=== PATIENT | male | born 1985 | race Two or more races ===

== ENCOUNTER 2020-05-25 22:08 | Emergency (ER) | payer SELFPAY ==
[~2020-05-25] VITALS: Ht 162.6 cm; Wt 65.9 kg
[~2020-05-25 22:08] MED LIST: LIDOcaine 1% 30ml preserv. free vial ONE
[2020-05-26] MEDS ORDERED: nitroGLYCERIN 1gm ointment UD TP ONE (00:30)
[2020-05-26] MEDS ORDERED: TETanus/Pertussis (Acell)/Diphther VAC/PF (Tdap-Adult) 0.5ml syringe IMVAC ONE (00:30)
[2020-05-26] MEDS ORDERED: LIDOcaine/epinephrine/tetracaine TOPICAL sol 3 ML syringe TOP ONE ×3 (02:10→02:25)
[2020-05-26] MEDS ORDERED: amox tr/potassium clavulanate 875/125mg TAB PO ONE (02:20)
[2020-05-26] MEDS ORDERED: ondansetron 4mg rapidly disintigrating tab PO ONE (02:20)
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
[2020-05-26] MEDS ORDERED: normal saline 1000ml 1,000 ML IV ONE (02:35)
[2020-05-26] MEDS ORDERED: AMOX-419 PO (02:46)
[2020-05-26 03:25] VITALS: BP 112/80
[2020-05-27] MEDS ORDERED: fentaNYL/PF 50MCG/1 ML 2ML syringe ONE (07:24)
[2020-05-27] MEDS ORDERED: midazolam 1 mg/ML 2ml injection ONE (07:24)
[2020-05-27] MEDS ORDERED: LIDOcaine 2% (20mg/ml) 5ml vial ONE (07:37)
[2020-05-27] MEDS ORDERED: propofol inj 20 ML IV ONE (07:37)
[2020-05-27] MEDS ORDERED: rocuronium 10mg/ml inj IV ONE (07:37)
[2020-05-27] MEDS ORDERED: dexamethasone sod phosphate 4mg/ml inj. ONE (07:37)
[2020-05-27] MEDS ORDERED: ondansetron/PF 4mg/2ml inj ONE (07:37)
[2020-05-27] MEDS ORDERED: ceFAZolin 1000mg inj ONE ×2 (07:41)
[2020-05-27] MEDS ORDERED: ePHEDrine 50MG/ML INJ. ONE (08:11)
[2020-05-27] MEDS ORDERED: 0.9 % SODIUM CHLORIDE 10 ML VIAL ONE (08:24)
[2020-05-27] MEDS ORDERED: albumin (Human) 5% 250ml 250 ML IV ONE (08:27)
[2020-05-27] MEDS ORDERED: neostigmine methylsulfate 1 MG/ML 10ml vial ONE (08:28)
[2020-05-27] MEDS ORDERED: glycopyrrolate 0.2mg/ml inj ONE (08:28)
== END 2020-05-26 03:26 | disposition home or self-care (01) ==
LOC: ER 22:34
DX: S01.311A Laceration without foreign body of right ear, initial encounter (principal); Z72.89 Other problems related to lifestyle; W19.XXXA Unspecified fall, initial encounter; Y93.89 Activity, other specified; Y92.89 Other specified places as the place of occurrence of the external cause; Y99.8 Other external cause status
CPT/HCPCS: 12013; 70450; 90471; 90715; 99284; J2001; J7030; J0690; J1100; J2250; J2405; J2704; J2710; J3010; J3490; P9045

== ENCOUNTER 2020-05-26 09:57 | Emergency (ER) | payer SELFPAY ==
[~2020-05-26] VITALS: Ht 167.6 cm; Wt 68.2 kg
[~2020-05-26 09:57] MED LIST changes: +AMOX-419 PO; -LIDOcaine 1% 30ml preserv. free vial ONE
[2020-05-26 11:00] VITALS: BP 120/80
== END 2020-05-26 11:00 | disposition left against medical advice (07) ==
LOC: ER 09:58
DX: S01.311D Laceration without foreign body of right ear, subsequent encounter (principal); Z79.2 Long term (current) use of antibiotics; X58.XXXD Exposure to other specified factors, subsequent encounter
CPT/HCPCS: 99284

== ENCOUNTER 2020-05-27 03:13 | Emergency (ER) | payer MEDICAID, OTHER ==
[2020-05-27] VITALS (10 sets, daily range): BP systolic 95–125; BP diastolic 40–75
[~2020-05-27] VITALS: Ht 172.7 cm; Wt 63.6 kg
[2020-05-27] MEDS ORDERED: normal saline 1000ml 1,000 ML IVB ONE (03:30)
--- NOTE | 2020-05-27 03:32 | NUR ---
friend states he did eat today and that he didnot drink alcohol today
--- NOTE | 2020-05-27 03:33 | NUR ---
his right ear has since had 4x4s layered on top of existing bandage and more coban applied.
[2020-05-27] MEDS ORDERED: tranexamic acid 100mg/ml inj. IV ONE (03:40)
[2020-05-27 03:48] LABS: BASOPHILS # (AUTO) 0.1 X10'3 (0-0.2); BASOPHILS % (AUTO) 0.6 % (0-1); EOSINOPHILS # (AUTO) 0.1 X10'3 (0-0.9); EOSINOPHILS % (AUTO) 1.3 % (0-6); HEMATOCRIT 22.5 % (42.0-52.0); HEMOGLOBIN 7.6 g/dl (14.0-17.9); LYMPHOCYTES # (AUTO) 4.1 X10'3 (1.1-4.8); LYMPHOCYTES % (AUTO) 38.1 % (21-51); MEAN CORPUSCULAR HEMOGLOBIN 30.4 PG (27.0-31.0); MEAN CORPUSCULAR HGB CONC 33.8 g/dL (33.0-36.5); MEAN CORPUSCULAR VOLUME 90.1 FL (78-98); MONOCYTES # (AUTO) 0.7 X10'3 (0-0.9); MONOCYTES % (AUTO) 6.2 % (2-12); NEUTROPHILS # (AUTO) 5.8 X10'3 (1.8-7.7); NEUTROPHILS % (AUTO) 53.8 % (42-75); PLATELET COUNT 255 X10'3 (140-440); RED CELL DISTRIBUTION WIDTH 15.6 % (11.5-14.5); WHITE BLOOD COUNT 10.8 X10'3 (4.5-11.0)
[2020-05-27 04:03] LABS: ALANINE AMINOTRANSFERASE 71 U/L (12-78); ALBUMIN 2.6 G/DL (3.4-5.0); ALBUMIN/GLOBULIN RATIO 1.1 (1.1-1.5); ALKALINE PHOSPHATASE 61 IU/L (46-116); ANION GAP 9 (8-16); ASPARTATE AMINO TRANSFERASE 22 U/L (10-37); BILIRUBIN,TOTAL 0.8 MG/DL (0.1-1.0); BLOOD UREA NITROGEN 11 MG/DL (7-18); CALCIUM 7.1 MG/DL (8.5-10.1); CHLORIDE 106 MMOL/L (99-107); CREATININE 0.92 MG/DL (0.60-1.10); ETHANOL < 0.010 GM/DL (0.0-0.010); GLUCOSE 114 MG/DL (70-104); SODIUM 141 MMOL/L (135-145); TOTAL CARBON DIOXIDE 26.1 MMOL/L (24-32); eGFR > 90 ML/MIN
--- NOTE | 2020-05-27 04:37 | NUR ---
PT SIGNED CONSENT TO GIVE BLOOD
--- NOTE | 2020-05-27 04:56 | NUR ---
Had MD at as the dressing bled though. Instructed to remove dressing, place dressing behind ear and in front of ear and replace coban. So done. When taken off there was a clot and xeroform over that ear pinna that was avulsed, there is active bleeding at a good pace. will monitor.
--- NOTE | 2020-05-27 05:25 | NUR ---
pt is asleep
--- NOTE | 2020-05-27 06:06 | NUR ---
Doesn't appear to be bleeding through at all. Just a tinge of blood to anterior face part, however, that was from a smear of blood when I placed that dressing.
[2020-05-27] MEDS ORDERED: potassium Cl 20 mEq SR tablet PO PRN ×2 (06:35)
[2020-05-27] MEDS ORDERED: ondansetron/PF 4mg/2ml inj IV PRN ×2 (06:35→08:25)
[2020-05-27] MEDS ORDERED: magnesium 4gm in 100ml NS 100 ML IV PRN (06:35)
[2020-05-27] MEDS ORDERED: magnesium Cl slow-release 64mg tablet PO PRN (06:35)
[2020-05-27] MEDS ORDERED: magnesium 2GM in 50ml NS 50 ML IV PRN (06:35)
[2020-05-27] MEDS ORDERED: acetaminophen 325mg tablet PO PRN (06:35)
[2020-05-27] MEDS ORDERED: potassium Cl 40MEQ/1/2NS 520ml 520 ML IV PRN ×2 (06:35)
[2020-05-27] MEDS ORDERED: normal saline 1000ml 1,000 ML IV SCH (06:35)
[2020-05-27] MEDS ORDERED: LIDOcaine 1% W/epiNEPHrine 1:100,000 20ml vial ONE (06:39)
--- NOTE | 2020-05-27 07:05 | NUR ---
PATIENT HAS BEEN NPO. IV SITES X 2 PATENT. PATIENT DRESSED IN HOSPITAL GOWN AND ALL PERSONAL BELONGINGS BAGGED AND GIVEN TO FRIEND, WHO IS PRESENT IN ROOM. TO OR PER DALI, WITH TRANSPORTERS. PATIENT IN STABLE CONDITION UPON DEPARTURE FROM ER.
[2020-05-27] MEDS ORDERED: famotidine/PF 10 mg/ml inj IV ONE (07:23)
[2020-05-27] MEDS ORDERED: BUPIVAcaine 0.5% inj/PF 30 ML ONE (07:47)
[2020-05-27] MEDS ORDERED: K and/or MAG REPLACEMENT MC SCH (08:00)
[2020-05-27] MEDS ORDERED: morphine 2 MG/ML inj. syringe IV PRN (08:25)
[2020-05-27] MEDS ORDERED: morphine 4 MG/ML inj SYRINge IV PRN (08:25)
[2020-05-27] MEDS ORDERED: meperidine/PF 25mg/ml syringe IV PRN ×3 (08:25)
[2020-05-27] MEDS ORDERED: bacitracin 15gm ointment TP ONE (08:25)
[2020-05-27] MEDS ORDERED: proCHLORperazine 10 MG/2 ml inj IV PRN (08:25)
[2020-05-27] MEDS ORDERED: ringers solution, lacted 1,000 ML IV SCH (08:25)
[2020-05-27] MEDS ORDERED: acetaminophen 1,000mg/100ml IV 100 ML IV PRN (08:25)
[2020-05-27] MEDS ORDERED: BUPIVAcaine/PF 5 MG/ML 10ML VIAL IJ ONE (08:30)
[2020-05-27] MEDS ORDERED: HYDROcodone/acetaminophen 10/325mg tab PO ONE (08:45)
[2020-05-27] MEDS ORDERED: bacitracin 15gm ointment TP SCH (08:45)
--- NOTE | 2020-05-27 08:50 | NUR ---
Received from OR via BED , accompanied by Anesthesiologist and report given by Anesthesiolgist. PATIENT WAKING UP, NO S/S OF PAIN, V/S WNL, SCD ON, 20G TO LUE, RIGHT EAR DRESSING CDI
--- NOTE | 2020-05-27 09:51 | NUR ---
PATIENT A&OX4, DENIES PAIN, V/S WNL, SCD ON, 20G TO LUE D/C, RIGHT EAR DRESSING CDI . I HAVE REVIEWED D/C ORDERS WITH PATIENT AND HIS FRIEND AND THEY HAVE VERBALIZED UNDERSTANDING. PATIENT D/C HOME WITH ALL BELONGINGS AND FRIEND GAVE TRANSPORT.
== END 2020-05-27 09:51 | disposition home or self-care (01) ==
LOC: ER 03:14 → ED HOLD 06:31 → UNDOADMOB 06:31 → UNDODISOB 10:00
DX: S01.311A Laceration without foreign body of right ear, initial encounter (principal); Z20.822 Contact with and (suspected) exposure to COVID-19; D64.9 Anemia, unspecified; R55 Syncope and collapse; W01.198A Fall on same level from slipping, tripping and stumbling with subsequent striking against other object, initial encounter; Y93.89 Activity, other specified; Y92.89 Other specified places as the place of occurrence of the external cause; Y99.9 Unspecified external cause status
CPT/HCPCS: 12011; 36415; 36430; 80053; 80320; 85025; 85610; 86885; 86900; 86901; 86920; 87635; 93005; 96374; 99291; A6223; C9803; J3490; J7030; J7120; P9016; 99285; A4618; A6446; A6449; A7000; G0378

== ENCOUNTER 2020-06-06 18:48 | Emergency (ER) | payer MEDICAID, OTHER ==
[~2020-06-06] VITALS: Ht 165.1 cm; Wt 64.8 kg
[2020-06-06 19:13] VITALS: BP 131/68
== END 2020-06-06 20:50 | disposition home or self-care (01) ==
LOC: ER 18:49
DX: S01.311D Laceration without foreign body of right ear, subsequent encounter (principal); Z98.890 Other specified postprocedural states; Z72.89 Other problems related to lifestyle; X58.XXXD Exposure to other specified factors, subsequent encounter
CPT/HCPCS: 99281

== ENCOUNTER 2020-06-08 13:18 | Emergency (ER) | payer MEDICAID, OTHER ==
[~2020-06-08] VITALS: Ht 170.2 cm; Wt 75.0 kg
[2020-06-08 13:29] VITALS: BP 120/68
== END 2020-06-08 14:52 | disposition home or self-care (01) ==
LOC: ER 13:19
DX: S01.311D Laceration without foreign body of right ear, subsequent encounter (principal); Z48.02 Encounter for removal of sutures; Z72.89 Other problems related to lifestyle; Z98.890 Other specified postprocedural states; X58.XXXD Exposure to other specified factors, subsequent encounter
CPT/HCPCS: 99281